=== PATIENT | female | born 1945 | race Caucasian/White ===

== ENCOUNTER 2025-04-04 14:17 | Outpatient (CLI) | payer MEDICARE, OTHER | END 2025-04-04 14:18 | disposition home or self-care (01) | LOC: CSHMRI 14:17 | PROVIDERS: ATTEND Orthopaedic Surgery | DX: M47.26 Other spondylosis with radiculopathy, lumbar region (principal); M47.27 Other spondylosis with radiculopathy, lumbosacral region | CPT/HCPCS: 72148 ==